=== PATIENT | male | born 1985 | race Two or more races ===

== ENCOUNTER 2024-11-16 18:47 | Emergency (ER) | payer MEDICAID, OTHER ==
[~2024-11-16] VITALS: Ht 177.8 cm; Wt 73.7 kg
--- NOTE | 2024-11-16 19:08 | ECG ---
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
--- NOTE | 2024-11-16 19:58 | ED.PDOC ---
Musculoskeletal HPI Comments Mr. Pozo Tabathahelen Dudley Is a 39-year-old male, with past medical history of DVT (2021)and sciatic nerve pain . The patient came to the ED with the chief complain of 1 day of left shoulder pain, 3/10 , burning-like, associated with numbness and tingling sensation that goes down to his fingers. On further questioning, the patient reports he is left handed and he is being doing some weight lifting. The patient denies trauma to the shoulder or arm, fever, chills, or other symptoms. Left shoulder X-ray and US dopper of the upper extremity has been order. The patient will be reassessed with the results. Chief Complaint: Upper Extremity Time Seen by MD: 18:53 Reviewed Notes: Nurses Notes, Medications, Allergies Allergies: Coded Allergies: NO KNOWN ALLERGIES (Unverified , 11/16/24) Information Source: Patient Mode of Arrival: Ambulatory Location: Left Extremity Location: Shoulder Timing: Days Severity: Mild Bear Weight: Fully Pain: Mild Hand Dominance: Left Mechanism: Unknown Circumstances: Spontaneous Onset of Symptoms: Spontaneous (After waking up this morning.) DVT Risk Factors: DVT (history of DVT 3 years ago) Associated signs and symptoms: Shoulder pain, Other (numbness and tingling sensation.) Past Medical History Past Medical History (Other): DVT, Sciatic nerve pain Surgical History: Denies all surgeries Family History Family History: Reviewed,noncontributory to illness Social History Smoker: Non-Smoker Alcohol: Occasionally Drugs: Marijuana Lives In: Home Constitutional: denies: chills, diaphoresis, fatigue, fever, malaise, sweats, weakness, others EENTM: denies: blurred vision, double vision, ear bleeding, ear discharge, ear drainage, ear pain, ear ringing, eye pain, eye redness, hearing loss, mouth pain, mouth swelling, nasal discharge, nose bleeding, nose congestion, nose pain, photophobia, tearing, throat pain, throat swelling, voice changes, others Respiratory: denies: cough, hemoptysis, orthopnea, SOB at rest, shortness of breath, SOB with excertion, stridor, wheezing, others Cardiovascular: denies: chest pain, dizzy spells, diaphoresis, Dyspnea on exertion, edema, irregular heart beat, left arm pain, lightheadedness, palpitations, PND, syncope, others Gastrointestinal: denies: abdomen distended, abdominal pain, blood streaked bowels, constipated, diarrhea, dysphagia, difficulty swallowing, hematemesis, melena, nausea, poor appetite, poor fluid intake, rectal bleeding, rectal pain, vomiting, others Genitourinary: denies: burning, dysuria, flank pain, frequency, hematuria, incontinence, penile discharge, penile sore, pain, testicle pain, testicle swelling, urgency, others Neurological: reports: numbness (Left arm, from shoulder down to his fingers), tingling (Left arm: fingers) Musculoskeletal: denies: back pain, gout, joint pain, joint swelling, muscle pain, muscle stiffness, neck pain, others Integumetry: denies: bruises, change in color, change in hair/nails, dryness, laceration, lesions, lumps, rash, wounds, others Allergic/Immunocompromised: denies: Difficulty Healing, Frequent Infections, Hives, Itching, others Hematologic/Lymphatic: denies: anemia, blood clots, easy bleeding, easy bruising, swollen glands, others Endocrine: denies: excessive hunger, excessive sweating, excessive thirst, excessive urination, flushing, intolerance to cold, intolerance to heat, unexplained weight gain, unexplained weight loss, others Psychiatric: denies: anxiety, bipolar disorder, depression, hopeless, panic disorder, schizophrenia, sleepless, suicidal, others Physical Exam General Appearance: No Apparent Distress, Normal HEENT: Normal ENT Inspection, Pharynx Normal, TMs Normal Neck: Full Range of Motion, Non-Tender, Normal, Normal Inspection Respiratory: Chest Non-Tender, Lungs Clear, No Accessory Muscle Use, No Respiratory Distress, Normal Breath Sounds Cardiovascular: No Edema, No JVD, No Murmur, No Gallop, Normal Peripheral Pulses, Regular Rate/Rhythm Breast Exam: Deferred Gastrointestinal: No Organomegaly, Non Tender, No Pulsatile Mass, Normal Bowel Sounds, Soft Genitalia: Deferred Pelvic: Deferred Rectal: Deferred Extremities: No calf tenderness, Normal capillary refill, Normal inspection, Tender (Left shouldert tender over the acromion clavicular join. ), Other (Neer test positive) Musculoskeletal : Apperance: Normal Neurologic: Alert, stone rigger II-XII nml as Tested, No Motor Deficits, Normal Affect, Normal Mood, No Sensory Deficits Cerebellar Function: Normal Reflexes: Normal Skin: Dry, Normal Color, Warm Peripheral Pulses: 4+ carotid (R), 4+ carotid (L), 4+ Radial (R), 4+ Radial (L), 4+ Brachial (R), 4+ Brachial (L) Lymphatic: No Adenopathy Was a procedure done? Was a procedure done?: No Differential Diagnosis EXT Differential Diagnosis: Other Other Differential Diagnosis #Rotator cuff injury, #Nerve impingement. X-Ray, Labs, Meds, VS Vital Signs Date Time Temp Pulse Resp B/P (MAP) Pulse Ox O2 Delivery O2 Flow Rate FiO2 11/16/24 22:58 Room Air* 0 21 11/16/24 22:57 97.8 54 15 129/87 (101) 99 97.8 11/16/24 19:00 67 11/16/24 18:52 98.1 72 18 123/74 97 98.1 X-Ray, Labs, Meds, VS Comment The patient has been reevaluated. No changes. Left Shoulder Xray showed: There is no evidence of acute fracture or dislocation. The visualized joint space is well maintained. The alignment is anatomical.There is no radiopaque foreign body. Doppler US: NO SONOGRAPHIC EVIDENCE FOR DEEP VENOUS THROMBOSIS IN THE LEFT UPPER EXTREMITY VEINS Time of 1ST Reevaluation: 19:54 Reevaluation 1ST: Unchanged Patient Education/Counseling: Diagnosis, Treatment, Prognosis, Need For Follow Up Family Education/Counseling: No Family Present Departure 1 Departure Time of Disposition: 23:00 Impression: Primary Impression: Nerve compression Additional Impression: Cervical radiculopathy Disposition: HOME / SELF CARE / HOMELESS Condition: Good Referrals F/U with PCP in one week. Motrin 400mg po q8h prn for pain Discharged With: Self Comments Goals of care discussed with the patient > 35 min. Discussed plan of care with Dr. Busch Code status: Full code PCP: Dr. Ling Frederick Plan discussed with: Patient, the patient agrees with the plan. Critical Care Note Critical Care Time?: No Stability Stability form required: No Heart Score Heart Score: Heart Score Response (Comments) Value History N/A 0 EKG N/A 0 Age N/A 0 Risk Factors N/A 0 Troponin N/A 0 Total 0 STEPHANIE MUNIZ RESIDENT Nov 16, 2024 19:58
--- NOTE | 2024-11-16 20:43 | DVH ---
CLINICAL INDICATION: Shoulder pain TECHNIQUE: 3 radiographic views of the left shoulder were obtained. Comparison: None FINDINGS/IMPRESSION: There is no evidence of acute fracture or dislocation. The visualized joint space is well maintained. The alignment is anatomical. There is no radiopaque foreign body.
--- NOTE | 2024-11-16 21:51 | DVH ---
CLINICAL HISTORY: PAIN TECHNIQUE: Color and duplex doppler imagine of the left upper extremity veins and left subclavian vei n was performed. Vessel compression if possible was also performed. COMPARISON: CV VENOUS DOPPLER LOW EXT RT on DOS: 01/08/24, CV VENOUS DOPPLER LOW EXT RT on DOS: 2 FINDINGS: The left internal jugular, axillary, basilic, cephalic, radial, ulnar and paired brachial veins are p atent and demonstrate normal compressibility and flow. The left subclavian is patent. IMPRESSION: NO SONOGRAPHIC EVIDENCE FOR DEEP VENOUS THROMBOSIS IN THE LEFT UPPER EXTREMITY VEINS.
[2024-11-16 22:57] VITALS: BP 129/87; PULSE 54; RESP 15; TEMP 97.8; O2SAT 99
== END 2024-11-16 23:02 | disposition home or self-care (01) ==
LOC: ER 18:47
DX: G58.9 Mononeuropathy, unspecified (principal); F12.90 Cannabis use, unspecified, uncomplicated; F10.90 Alcohol use, unspecified, uncomplicated; Z86.718 Personal history of other venous thrombosis and embolism
CPT/HCPCS: 73030; 93005; 93971